=== PATIENT | female | born 1965 | race Caucasian/White ===

== ENCOUNTER → 2018-05-10 | Outpatient (CLI) | payer OTHER ==
[~2018-05-10] MED LIST: AZULFIDINE500 MG/TAB PO; CHANTIX 1MG1 MG PO; THIAMINE I200 MG/2 M IJ
== END ==
LOC: MC.RAD 08:20
DX: Z12.31 Encounter for screening mammogram for malignant neoplasm of breast (principal); N63.21 Unspecified lump in the left breast, upper outer quadrant

== ENCOUNTER 2018-05-21 09:52 | Day surgery (SDC) | payer OTHER ==
[~2018-05-21] VITALS: Ht 157.5 cm; Wt 65.6 kg
[2018-05-21 11:00] VITALS: BP 158/104; PULSE 83; TEMP 96.8
[2018-05-21] MEDS ORDERED: AZULFIDINE500 MG/TAB PO (11:03)
[2018-05-21] MEDS ORDERED: CHANTIX 1MG1 MG PO (11:03)
[2018-05-21] MEDS ORDERED: THIAMINE I200 MG/2 M IJ (11:04)
[2018-05-21 11:45] VITALS: BP 133/101; PULSE 81; TEMP 97.2
[2018-05-21 12:00] VITALS: BP 126/108; PULSE 82
[2018-05-21 12:15] VITALS: BP 135/102; PULSE 87
== END 2018-05-21 12:39 | disposition home or self-care (01) ==
LOC: SDCO 09:52
DX: K28.3 Acute gastrojejunal ulcer without hemorrhage or perforation (principal); K29.50 Unspecified chronic gastritis without bleeding; K50.90 Crohn's disease, unspecified, without complications; Z90.49 Acquired absence of other specified parts of digestive tract; E53.8 Deficiency of other specified B group vitamins; Z80.0 Family history of malignant neoplasm of digestive organs
CPT/HCPCS: J2250; J3010; J7030

== ENCOUNTER → 2018-06-03 | Outpatient (CLI) | payer OTHER | LOC: MC.RAD 09:59 | DX: N63.21 Unspecified lump in the left breast, upper outer quadrant (principal) | CPT/HCPCS: G0279 ==